=== PATIENT | male | born 1970 | race Caucasian/White ===

== ENCOUNTER 2018-10-11 10:06 | Emergency (ER) | payer SELFPAY ==
[~2018-10-11] VITALS: Ht 177.8 cm; Wt 74.8 kg
[2018-10-11] MEDS ORDERED: ALBUTEROL/IPRATROPIUM 3 ML NEB NEB ONE (10:30)
[2018-10-11] MEDS ORDERED: DEXAMETHASONE SOD PHOS 10 MG/1 ML VIAL IM ONE (10:30)
[2018-10-11] MEDS ORDERED: DOXYCYCLINE HYCLATE TABLET 100 MG TAB PO ONE (10:30)
--- NOTE | 2018-10-11 11:33 | Diagnostic Imaging Report ---
EXAM: CHEST 2 VIEWS DATE: 10/11/2018 10:29 AM INDICATION: Shortness of breath, congestion COMPARISON: None FINDINGS: Lines and tubes: None Heart size normal. No focal pulmonary opacity, pleural effusion or pneumothorax. Upper abdomen unremarkable. No acute bony abnormality. IMPRESSION: No evidence for acute disease. Signed by: Dr. Sylvester Mcmahon M.D. on 10/11/2018 11:29 AM
[2018-10-11 12:57] VITALS: BP 116/92
== END 2018-10-11 13:12 | disposition home or self-care (01) ==
LOC: ER 10:06
DX: R06.00 Dyspnea, unspecified (principal); R05 Cough; J20.9 Acute bronchitis, unspecified
CPT/HCPCS: 71046; 99283; J1100